=== PATIENT | female | born 1965 | race Caucasian/White ===

== ENCOUNTER 2024-12-19 12:45 | Outpatient (CLI) | payer OTHER, SELFPAY ==
--- NOTE | ~2024-12-19 | MMUS_ITS ---
EXAMINATION: MM diagnostic milton LT w umesh, US breast LT complete HISTORY: Follow-up left breast asymmetry TECHNIQUE: Additional 3-D tomosynthesis images of the left breast were performed and synthetic 2-D im ages were generated. CAD analysis was submitted and interpreted. High resolution complete left breast ultrasound was performed. COMPARISON: Comparison to multiple prior studies sequentially, with oldest reviewed study dated 10/04. BREAST PARENCHYMAL COMPOSITION: Not dense: There are scattered areas of fibroglandular density. FINDINGS: MAMMOGRAPHIC FINDINGS: There are no suspicious masses, calcifications or architectural distortion in the left breast to sugg est malignancy. ULTRASOUND: Complete US of all 4 quadrants of the left breast/s and retroareolar region was reviewed. Normal hete rogeneous echotexture without focal solid or cystic mass. IMPRESSION: 1. No evidence for malignancy in the left breast. 2. Routine yearly screening mammogram and regular clinical breast examination are recommended. BI-RADS Category 1: Negative Reviewed, dictated and finalized at location A. IMPRESSION: 1. No evidence for malignancy in the left breast. 2. Routine yearly screening mammogram and regular clinical breast examination a re recommended. BI-RADS Category 1: Negative
--- OUTSIDE RECORDS SUMMARY | 2024-12-19 14:17 | XMS_ITS | Encounter Summary ---
Author Organization [facility] Address [facility] [place] [address] Care Team Providers Care Ammunition Supervisor Name Role Phone Carolyn Espinoza Primary Care Provider [phone] Reason for Referral * Imaging (Routine) - New Request Specialty Diagnoses / Procedures Referred By Jeet t Referred To Contact RADIOLOGY Diagnoses Breast cancer screening by mammogram Procedures MG SCREENING W VINITA AILYN DIGI Carolyn Espinoza FNP [address] [place] [address] [place] [address] Phone: tel: fax: Referral ID Status Reason Start Date Expiration Date V isits Requested Visits Authorized [id number] New Request 12/16/2024 02/15/2026 1 1 Reason for Visit * Reason Onset Date Comments Mammography Order 12/14/2024 Encounter Details Date Type Department Care Team (Late st Contact Info) Description 12/14/2024 Telephone [facility] [address] [place] [address] Carolyn Espinoza FNP [address] [place] [address] [place] [address] Mammography Order Social History Tobacco Use Types Packs/Day Years Used Date Smoking Tobacco: Former Cigarettes Q uit: 06/22/2012 Passive Smoke Exposure: Never Smokeless Tobacco: Never Alcohol Use Standard Drinks/Week Comments Yes 0 (1 standard drink = 0.6 oz pur e alcohol) rarely PHQ-2 Answer Date Recorded Patient Health Questionnaire-2 Score 0 02/05/2024 Comments No Sex and Gender Information Value Date Recorded Sex Assigned at Not on file Legal Sex Female 7:53 AM CDT Gender Identity Not on file Sexual Orientation Not on file documented as of this encounter Progress Notes * Rebeca Lundberg LPN - 12/19/2024 1:06 PM CDT I called and confirmed fax. [phone]. We have faxed twice and it has failed. They asked I fax to [facility] . Refaxed to this number. * Preston Gimenez - 12/19/2024 12:50 PM CDT Re printed orders and sent to [facility] stated they did not receive orders. * Rebeca Lundberg LPN - 12/16/2024 3:25 PM CDT New mammogram order and last mammogram and US results faxed to number below and pt aware. * Preston Gimenez - 12/14/2024 12:14 PM CDT Pt calling needing order for mammogram sent to [facility] needing bilateral also needing last mammogram sent to them as well pt will be picking up new order please advise. Appt date documented in this encounter Plan of Treatment Scheduled Orders Name Type Priority Associated Diagnoses Orde r Schedule MG SCREENING W VINITA AILYN DIGI MAMMO Routine Breast cancer screening by mammogram Expected: 12/16/2024, Expires: 12/16/2025 documented as of this encounter Visit Diagnoses Diagnosis Breast cancer screening by mammogram- Primary documented in this encounter Care Teams Ammunition Supervisor Relationship Specialty Start Date End Date Carolyn Espinoza FNP [address] [place] [address] [place] [address] PCP - General 09/29/23 documented as of this encounter
--- OUTSIDE RECORDS SUMMARY | 2024-12-19 14:17 | XMS_ITS | Clinical Summary ---
Author Organization [facility] Address [address] [place] [address] Care Team Providers Care Management Technician Name Role Phone Carolyn Espinoza ANASTASIIA-INVESTIGATION CLERK Primary Care Provider [phone] Source Comments [facility] [employer],non-owned Affiliates and Associated Physician Practices is amultiple site organization consisting of ambulatory clinics and hospital sitesin [place], [place], [place] and [place]. This disclosure is being madepursuant to the Care Everywhere program and may not contain all information available regarding this patient. Last updated 18.[facility] [employer] Allergies Active Allergy Reactions Criticality Noted Date Comments Codeine Itching,Unknown 04/23/2012 Metformin Diarrhea 09/21/2018 Medications * Be aware that medications may not be up to date on this document. Alwaysverify current medications with the patient. Medication Sig Dispensed Refills Start Date End Date Status atorvastatin (Lipitor) 20 MG tablet Take 1 (one) tablet by mouth once daily 04/19/2024 Active lisinopril (Prinivil; Zestril) 20 MG tablet Take 1 (one) tablet by mouth once daily 04/19/2024 Active Mounjaro 2.5 MG/0.5ML injection Inject 2.5 (two and one-half) mg subcutaneously every 7 days 05/21/2024 Active ketoconazole (Nizoral) 2 % cream Apply to rash twice daily. 30 days supply. 60 g 3 06/08/2024 Active Active Problems No known active problems Social History Tobacco Use Types Packs/Day Years Used Date Smoking Tobacco: Never Assessed Sex and Gender Information Value Date Recorded Sex Assigned at Not on file Gender Identity Not on file Sexual Orientation Not on file Plan of Treatment Upcoming Encounters Date Type Department Care Team (Late st Contact Info) Description 06/07/2025 8:20 AM CDT Office Visit [facility] - Dermatology [address] [place] [phone] Elias Burch MD [facility] [facility] [address] [place] [phone] Health Maintenance Due Date Last Done Comments COLOGUARD (AGES 45-75) - COLON CA SCREENING 1964 COLON MONITORING 1964 COLONOSCOPY - COLON CA SCREENING 1964 CT COLONOGRAPHY - COLON CA SCREENING 1964 Colorectal Cancer Screening 1964 FIT - COLON CA SCREENING 1964 FLEX SIG - COLON CA SCREENING 1964 PAP SMEAR 1964 HIV SCREENING 1979 HEPATITIS C SCREENING 07/18/1982 DTAP/TDAP/TD VACCINES (1 - Tdap) 1983 PNEUMOCOCCAL VACCINE 50+ (1 of 1 - PCV) 2014 ZOSTER VACCINE (1 of 2) 2014 COVID-19 VACCINE (1 - season) 2024 INFLUENZA VACCINE (#1) 2024 07/07/2019 DEPRESSION SCREENING 09/21/2024 MAMMOGRAM 05/06/2026 05/06/2024, 04/21, 04/24/2022, Additional history exists Respiratory Syncytial Virus (RSV) Vaccine Pt: or over 60 yrs (1 - 1-dose 75+ series) 2039 HEPATITIS B VACCINE Aged Out No longe r eligible based on patient's age to complete this topic HIB VACCINE Aged Out No longer eligi ble based on patient's age to complete this topic HPV VACCINE Aged Out No longer eligi ble based on patient's age to complete this topic MENINGOCOCCAL (Group B) VACCINE SHARED DECISION-MAKING Aged Out No longer eligible based on patient's age to complete this topic MENINGOCOCCAL GROUPS A/C/Y/W VACCINE Aged Out No longer eligible based on patient's age to complete this topic PNEUMOCOCCAL VACCINE Aged Out No long er eligible based on patient's age to complete this topic Care Teams Management Technician Relationship Specialty Start Date End Date Carolyn Espinoza, COMMERCIAL CARPENTER-INVESTIGATION CLERK [address] [place] [address] [place] [address] PCP - General Nurse Practitioner Family 04/28/24
--- OUTSIDE RECORDS SUMMARY | 2024-12-19 14:17 | XMS_ITS | Clinical Summary ---
Author Organization [facility] Address [facility] [place] [address] Care Team Providers Care Gravel Inspector Name Role Phone Emilee Espinoza MALCOLM Primary Care Provider [phone] Allergies Active Allergy Reactions Criticality Noted Date Comments Codeine Itching,Unknown 04/23/2012 Metformin Diarrhea 09/21/2018 Medications atorvastatin (LIPITOR) 20 MG tabletIndications: Uncontrolled type 2 diabetes mellitus with hyperglycemia ([facility] HHS/HCC) Take 1 tablet (20 mg total) by mouth nightly at bedtime. 90 tablet 1 4 Active empagliflozin (JARDIANCE) 10 MG tabletIndications: Uncontrolled type 2 diabetes mellitus with hyperglycemia ([facility] HHS/HCC) Take 1 tablet (10 mg total) by mouth daily. 30 tablet 2 4 Active traMADol (ULTRAM) 50 MG tabletIndications: Acute Pain < 3 Day Supply Take 1 tablet (50 mg total) by mouth every 6 (six) hours as needed for Pain. Indications: Acute Pain < 3 Day Supply 10 tablet 4 Active diclofenac EC (VOLTAREN) 75 MG tabletIndications: Chronic left shoulder pain,Decreased range of motion of left shoulder TAKE 1 TABLET BY MOUTH TWICE A DAY 60 tablet 4 Active lisinopril (PRINIVIL) 20 MG tabletIndications: Uncontrolled type 2 diabetes mellitus with hyperglycemia ([facility] HHS/HCC),Essential hypertension TAKE 1 TABLET BY MOUTH EVERY DAY 90 tablet 1 5 Active Active Problems Problem Noted Date Diagnosed Date Type 2 diabetes mellitus wit h hyperglycemia, without long-term current use of insulin ([facility]) 10/05/2023 Other fatigue 10/15/2019 Overview (04/23/2022): Last Assessment & Plan: Probably multifactorial. Check labs and followup to re-evaluate Check labs. Fatty liver 07/13/2019 Overview (04/23/2022): Abdominal US 2018 Last Assessment & Plan: Check labs. Encouraged diet and exercise Morbid obesity 06/09/2012 Overview (04/23/2022): Last Assessment & Plan: Obesity is unchanged. Discussed the patient's BMI. The BMI is above average. BMI management plan is completed. BMI Follow-up includes: nutrition counseling, exercise counseling and education provided. Resolved Problems Problem Noted Date Diagnosed Date Resolved Date Controlled type 2 diabetes ari anderson with hyperglycemia, without long-term current use of insulin ([facility]) 12/21/2017 01/07/2024 Overview (04/23/2022): Last Assessment & Plan: Stressed importance of continued A1c control to minimize the nursing home effects of diabetes. Bring accuchecks to office when instructed to do so. Check A1c about every 3-6 months. Take medication as prescribed. Get annual eye exam. Encouraged XAVI/Statin if able to tolerate. Encouraged weight control and encouraged diabetic diet and exercise. Check labs. Encounters Date Type Department Care Team Description 12/14/[address] [place] [id number] Emilee Espinoza FNP Mammography Order 11/16/[address] [place] [address] Emilee Espinoza FNP Mammography Order from Last 3 Months Immunizations Name Administration Dates Next Due Influenza Adult (Generic) 07/07/2019 Family History Medical History Relation Comments Hyperlipidemia Brother Hypertension Brother Skin cancer Brother Lung Cancer Father Suicidality Father Hyperlipidemia Mother Hypertension Mother Kidney failure Mother Stroke Mother bladder cancer Mother Brain cancer Sister Breast Cancer Sister Depression Sister Hypertension Sister breast cancer Sister Relation Status Comments Brother Alive Father Mother Sister Alive Social History Tobacco Use Types Packs/Day Years Used Date Smoking Tobacco: Former Cigarettes Q uit: 06/22/2012 Passive Smoke Exposure: Never Smokeless Tobacco: Never Tobacco Cessation:Counseling Given: No Alcohol Use Standard Drinks/Week Comments Yes 0 (1 standard drink = 0.6 oz pur e alcohol) rarely PHQ-2 Answer Date Recorded Patient Health Questionnaire-2 Score 0 02/05/2024 Comments No Sex and Gender Information Value Date Recorded Sex Assigned at Not on file Legal Sex Female 7:53 AM CDT Gender Identity Not on file Sexual Orientation Not on file Last Filed Vital Signs Vital Sign Reading Time Taken Comments Blood Pressure 159/73 07/06/2024 8:41 AM CDT Pulse 63 07/06/2024 8:33 AM CDT Temperature 36.7 C (98.1 F) 07/06/2024 8:33 AM CDT Respiratory Rate 12 07/06/2024 8:33 AM CDT Oxygen Saturation 99% 07/06/2024 8:33 AM CDT Inhaled Oxygen Concentration - - Weight 101.2 kg (223 lb) 07/06/2024 8:33 AM CDT Height 158.8 cm (5' 2.5 ) 07/06/2024 8:33 AM CDT Body Mass Index 40.14 07/06/2024 8:33 AM CDT Plan of Treatment Health Maintenance Due Date Last Done Comments Cervical Cancer Screening Pap Smear (Age 30 to 64) Every 3 Years 1964 Colorectal Cancer Screening Colonoscopy (10 Years) 1964 Diabetes: Retinopathy Eye Exam 1982 DTaP, Tdap and Td Vaccines (1 - Tdap) 1983 Cervical Cancer Screening Pap with HPV Testing (Age 30 to 64) Every 5 Years 1994 Zoster Vaccines (1 of 2) 2014 Annual Physical 04/23/2023 04/23/2022 COVID-19 Vaccine ( - season) 2024 RSV Immunization or 60+ Years (1 - Risk 60-74 years 1-dose series) 2024 PHQ-2 (Physician [place]) 09/21/2024 02/05/2024 Hemoglobin A1C 10/20/2024 04/19/2024, 0401/2024, 10/02/2023, Additional history exists Lipid Panel 01/03/2025 01/04/2024, 10/02/2023 Kidney Health Evaluation 04/19/2025 04/19/2024 Cervical Cancer Screening with HPV 04/21/2025 Postponed from 1994 (Going to Outside Clinic) Mammogram Screening 06/09/2026 06/09/2024, 05/06/2024, 04/24/2022 Pneumococcal Vaccine: Pediatrics (0 to 5 Years) and At-Risk Patients (6 to 64 Years) (1 of 2 - PCV) 2030 Postponed from 1970 (Future Appointment) Hepatitis C 04/23/2052 Postponed from 1982 (Patient Refused) Meningococcal B Vaccine Aged Out No l onger eligible based on patient's age to complete this topic Meningococcal Vaccine Aged Out No tara mark eligible based on patient's age to complete this topic RSV Immunizations Under 20 Months Aged Out No longer eligible based on patient's age to complete this topic Procedures Procedure Name Priority Date/Time Associated Diagnosis Comments MG DIAG ADD VIEW W VINITA LT LUANN 06/09/2024 8:39 AM CDT Abnormal mammogram HEMOGLOBIN, GLYCOSYLATED Routine 04/19/2024 6:35 AM CDT Uncontrolled type 2 diabetes mellitus with hyperglycemia LIPID PANEL Routine 01/04/2024 9:00 AM CDT Uncontrolled type 2 diabetes mellitus with hyperglycemia from Last 3 Months or Most Recently Relevant to Health Maintenance Results * MG DIAG ADD VIEW W VINITA LT (06/09/2024 8:39 AM CDT) Anatomical Region Laterality Modality Left Computed Tomogra phy, Other, Computed Tomography 06/09/2024 9:13 AM CDT Impressions 06/09/2024 9:15 AM CDT =====IMPRESSION:===== No correlate for asymmetry is noted on screening exam on diagnostic mammogram or ultrasound. Close interval follow-up however is recommended. Assessment: ACR BI-RADS 3 - PROBABLY BENIGN FINDING(S) - SHORT INTERVAL FOLLOW- UP SUGGESTED Recommendation: 1Short interval follow-up in 6 months. Left COMMENTS: Patient was informed of these findings, including the need for short interval follow up; by me, in person, at time of present study. Notification was performed in the presence of Rickey, computer engineering technologist. Examination: Breast ultrasound Findings: See combined report above. Comments: Ordered By: EMILEE ESPINOZA Interpreted By: Edgardo Gaines MD, 06/09/2024 9:13 AM Narrative 06/09/2024 9:15 AM CDT [address] [place] [address] Examination: Left diagnostic mammogram with 3-D tomosynthesis and ultrasound. [id number] Exam Date/Time: 06/09/2024 8:52 AM Reason For Exam: Abnormal screening mammogram Comparison: 05/06/2024, 04/24/2022, 12/23/2017, 05/03/2012 Technique: Left digital diagnostic mammography with 3-D tomosynthesis and ultrasound was performed. This study was read with the assistance of a computer-aided detection system. TISSUE DENSITY: There are scattered areas of fibroglandular density. FINDINGS: Previous asymmetry seen in the left breast on screening mammogram effaces with spot compression. No correlate on ultrasound is seen. us Emilee Espinoza COFFEE ATTENDANT MAMMO Final Result * (ABNORMAL) HEMOGLOBIN, GLYCOSYLATED (04/19/2024 6:35 AM CDT) HGB A1C 8.3(H) <5.7 % 04/19/2024 5:53 PM CDT [facility] Comment: ADA GUIDELINES 2010 5.7 TO 6.4% INCREASED RISK OF DIABETES > OR = 6.5% CONSISTENT WITH DIABETES ESTIMATED AVG GLUCOSE 192 mg/dL 04/19/2024 5:53 PM CDT [facility] 04/19/2024 6:35 AM CDT Emilee Espinoza COFFEE ATTENDANT LABORATORY Final Result [facility] [address] [place] [address], * LIPID PANEL (01/04/2024 9:00 AM CDT) CHOLESTEROL 150 0 - 200 MG/DL 01/04/2024 10:24 AM CDT [facility] TRIGLYCERIDES 116 0 - 150 MG/DL 01/04/2024 10:24 AM CDT [facility] HDL 48 >40 MG/DL 01/04/2024 10:24 AM CDT [facility] LDL (CALCULATED) 79 <100 MG/DL 01/04/2024 10:24 AM CDT [facility] NON HDL CHOLESTEROL 102 0 - 130 MG/DL 01/04/2024 10:24 AM CDT [facility] Comment: NOTE: WHEN THE TRIGLYCERIDES ARE >200 mg/dL, NON HDL C IS A SECONDARY TARGET OF THERAPY, WITH A GOAL 30 mg/dL HIGHER THAN THE IDENTIFIED LDL C GOAL. CHOL/HDL RATIO 3.1 0.0 - 4.5 01/04/2024 10:24 AM CDT [facility] VLDL CALCULATION 23 5 - 55 MG/DL 01/04/2024 10:24 AM CDT [facility] LIPID INTERPRETATION 01/04/2024 10:24 AM CDT [facility] Comment: NIH CONCENSUS REPORT RECOMMENDATIONS: ADULT CHILD LOW RISK: CHOLESTEROL <200 <170 TRIGLYCERIDE <150 --- HDL >=60 --- LDL <100 <110 BORDERLINE: CHOLESTEROL 200-239 170-199 TRIGLYCERIDE 150-199 --- HDL 40-59 --- LDL 100-159 110-129 HIGH RISK: CHOLESTEROL >=240 >=200 TRIGLYCERIDE >=200 --- HDL <40 --- LDL >=160 >=130 01/04/2024 9:00 AM CDT Emilee [facility] Final Result [facility] [address] [place] [address], from Last 3 Months or Most Recently Relevant to Health Maintenance Insurance MEDICAID [facility] Care Teams Gravel Inspector Relationship Specialty Start Date End Date Emilee Espinoza FNP [address] [place] [address] [place] [address] PCP - General 09/29/23
--- OUTSIDE RECORDS SUMMARY | 2024-12-19 14:17 | XMS_ITS | Referral Summary ---
Author Organization [facility] [place] [address] Address [address] [place] [address] Care Team Providers Care Driver Education Instructor Name Role Phone Jacki Barnes Primary Care Provider [phone] Allergies Active Allergy Reactions Criticality Noted Date Comments Codeine Phosphate Unknown 12/29/2018 Medications No known medications Active Problems Problem Noted Date Diagnosed Date Paronychia of right little finger 11/21/2019 Assessment & Plan (11/21/2019 5:56 PM PIE BAKER): Augmentin 875 mg twice a day for the next week. Advised to soak in warm water and Epsom salts. Recommended removal of nail. Instructed to follow-up with PCP if symptoms don't improve, worsen, or new symptoms develop. Dysuria 10/25/2019 Assessment & Plan (10/25/2019 9:42 PM PIE BAKER): Pt presents with dysuria. Urine dip completed. Send urine culture. Antibiotic to pharmacy. Reviewed bladder care. Flu-like symptoms 10/15/2019 Assessment & Plan (10/15/2019 1:53 PM PIE BAKER): Flu screening was negative. Other fatigue 10/15/2019 Assessment & Plan (10/15/2019 1:56 PM PIE BAKER): Probably multifactorial. Check labs and followup to re-evaluate Check labs. Acute non-recurrent maxillary sinusitis 10/15/19 20 Overview (10/15/2019): Start antibiotic, antihistamine, Mucinex and Steroid nasal spray. Will add steroid due to persistent cough. Push fluids. Rest. Supportive care. If sxs worsen or don\'t improve, pt is to followup in the office. Diarrhea 08/23/2019 Assessment & Plan (08/23/2019 8:38 PM PIE BAKER): Appears to be a viral gastroenteritis that is being potentiated by diet-- Urine dip negative for Ketones. Continue with clear fluids. Avoid dairy/fatty foods. BRAT/[place] diet until stool is more firm then slowly add back in food with dairy and fat being the last to add in. If sxs persist more than 5-7 days will need to get stool cultures/further workup. Fatty liver 07/13/2019 Overview (07/13/2019): Abdominal US 2018 Assessment & Plan (10/15/2019 1:52 PM PIE BAKER): Check labs. Encouraged diet and exercise Need for immunization against influenza 07/08/20 Assessment & Plan (07/08/2019 7:45 PM CDT): Updated in office. RUQ pain 07/08/2019 Assessment & Plan (07/08/2019 7:44 PM CDT): Sxs most consistent with Gallbladder but must also consider pancreatitis or other etiology. Will check abdominal US. If negative may consider HIDA. Explained to patient. Pt plans to schedule immediately. Reviewed GB diet. Prefers [facility] if necessary Considered labs/lipase/amylase. Pt wants to wait, clinically appears to be gallbladder. Reivewed warning s/s and to call or go to ER if appears. BMI 40.0-44.9, adult 05/09/2019 Assessment & Plan (10/13/2019 9:39 AM PIE BAKER): Obesity is unchanged. Discussed the patient's BMI. The BMI is above average. BMI management plan is completed. BMI Follow-up includes: nutrition counseling, exercise counseling and education provided. Assessment & Plan (08/23/2019 8:30 PM PIE BAKER): Obesity is unchanged. Discussed the patient's BMI. The BMI is above average. BMI management plan is completed. BMI Follow-up includes: nutrition counseling, exercise counseling and education provided. Assessment & Plan (07/08/2019 7:43 PM CDT): Obesity is unchanged. Discussed the patient's BMI. The BMI is above average. BMI management plan is completed. BMI Follow-up includes: nutrition counseling, exercise counseling and education provided. Assessment & Plan (05/09/2019 11:07 AM CDT): Obesity is unchanged. Discussed the patient's BMI. The BMI is above average. BMI management plan is completed. BMI Follow-up includes: nutrition counseling, exercise counseling and education provided. Morbid obesity 05/09/2019 Assessment & Plan (10/13/2019 9:40 AM PIE BAKER): Obesity is unchanged. Discussed the patient's BMI. The BMI is above average. BMI management plan is completed. BMI Follow-up includes: nutrition counseling, exercise counseling and education provided. Assessment & Plan (08/23/2019 8:30 PM PIE BAKER): Obesity is unchanged. Discussed the patient's BMI. The BMI is above average. BMI management plan is completed. BMI Follow-up includes: nutrition counseling, exercise counseling and education provided. Assessment & Plan (07/08/2019 7:44 PM CDT): Obesity is unchanged. Discussed the patient's BMI. The BMI is above average. BMI management plan is completed. BMI Follow-up includes: nutrition counseling, exercise counseling and education provided. Assessment & Plan (05/09/2019 11:07 AM CDT): Obesity is unchanged. Discussed the patient's BMI. The BMI is above average. BMI management plan is completed. BMI Follow-up includes: nutrition counseling, exercise counseling and education provided. Annual physical exam 05/09/2019 Assessment & Plan (05/09/2019 1:16 PM CDT): Encouraged healthy lifestyle, good nutrition and exercise. Encouraged Calcium and Vitamin D and weight bearing exercise for bone health. Reviewed immunizations Reviewed age appropirate screenings. Soft tissue mass 05/09/2019 Assessment & Plan (05/09/2019 1:17 PM CDT): This is a significant, separately identifiable problem that was evaluated and managed on the same day as the wellness exam Will check a ultrasound of the soft tissue of the left side of the back just below the last rib. It is not tender but is definitely an oblong mass that is separate from the rest of the tissue in the area. Follow up pending these results. Order given to patient for her to set at her convenience Breast cancer screening 05/09/2019 Assessment & Plan (05/09/2019 1:16 PM CDT): Mammogram order provided Mass 05/09/2019 Assessment & Plan (05/09/2019 1:17 PM CDT): This is a significant, separately identifiable problem that was evaluated and managed on the same day as the wellness exam Mass on forehead. Suspect this is a cyst but it is very firm. Will go ahead refer to the research home economist for further evaluation and probable removal. She would also like a full skin exam so it would be a perfect time for this to be done too. Controlled type 2 diabetes ari anderson with hyperglycemia, without long-term current use of insulin 05/09/2019 Assessment & Plan (10/15/2019 1:52 PM PIE BAKER): Stressed importance of continued A1c control to minimize the residential effects of diabetes. Bring accuchecks to office when instructed to do so. Check A1c about every 3-6 months. Take medication as prescribed. Get annual eye exam. Encouraged XAVI/Statin if able to tolerate. Encouraged weight control and encouraged diabetic diet and exercise. Check labs. Assessment & Plan (07/08/2019 7:44 PM CDT): Stressed importance of continued A1c control to minimize the terminal operations supervisor effects of diabetes. Bring accuchecks to office when instructed to do so. Check A1c about every 3-6 months. Take medication as prescribed. Get annual eye exam. Encouraged XAVI/Statin if able to tolerate. Encouraged weight control and encouraged diabetic diet and exercise. Continue with the Yuan. Monitor closely Assessment & Plan (05/09/2019 1:17 PM CDT): This is a significant, separately identifiable problem that was evaluated and managed on the same day as the wellness exam Stressed importance of continued A1c control to minimize the residential effects of diabetes. Bring accuchecks to office when instructed to do so. Check A1c about every 3-6 months. Take medication as prescribed. Get annual eye exam. Encouraged XAVI/Statin if able to tolerate. Encouraged weight control and encouraged diabetic diet and exercise. A1c is very well controlled with the Yuan. Her weight loss has not been as successful but she admits she is still eating a lot of carbs and not really watching her weight at all. She does recognize that she gets full quicker and does push food away but knows she needs to make different choices with her meals. She needs to get labs done to stop look at liver and kidney function since she has been on the to the [facility] so will provide the screens for this to be done prior to her next visit. Immunizations Immunization Administration Dates Next Due Influenza, Quadrivalent, Spl it, Preservative Free, Intramuscular 07/07/2019 Social History Tobacco Use Types Packs/Day Years Used Date Smoking Tobacco: Former Smokeless Tobacco: Never Alcohol Use Standard Drinks/Week Comments Yes 0 (1 standard drink = 0.6 oz pur e alcohol) PHQ-2 Answer Date Recorded PHQ-2 Score 0 05/11/2019 Personal Safety Answer Date Recorded Getting School Help Needed Not on file 12/03 Comments No Sex and Gender Information Value Date Recorded Sex Assigned at Not on file Legal Sex Female 8:23 AM PIE BAKER Gender Identity Not on file Sexual Orientation Not on file 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 Not on prieto e Last Filed Vital Signs Vital Sign Reading Time Taken Comments Blood Pressure 118/80 11/21/2019 5:24 PM PIE BAKER Pulse 65 11/21/2019 5:24 PM PIE BAKER Temperature 36.7 C (98 F) 11/21/2019 5:24 PM PIE BAKER Respiratory Rate 18 11/21/2019 5:24 PM PIE BAKER Oxygen Saturation 97% 11/21/2019 5:24 PM PIE BAKER Inhaled Oxygen Concentration - - Weight 112.9 kg (249 lb) 11/21/2019 5:24 PM PIE BAKER Height 162.6 cm (5' 4 ) 11/21/2019 5:24 PM PIE BAKER Body Mass Index 42.74 11/21/2019 5:24 PM PIE BAKER Plan of Treatment Not on file Insurance [employer] [place] Care Teams Driver Education Instructor Relationship Specialty Start Date End Date Jacki Barnes PA [address] [facility] [address] [place] [address] PCP - General Internal Medicine 05/09/19
--- OUTSIDE RECORDS SUMMARY | 2024-12-19 14:17 | XMS_ITS | Encounter Summary ---
Author Organization [facility] Address [facility] [place] [address] Care Team Providers Care Business Management Associate Name Role Phone Carolyn Espinoza Primary Care Provider [phone] Encounter Details Date Type Department Care Team (Late st Contact Info) Description 10/02/2023 QFPayt Message Enc [facility] [address] [place] [phone] Carolyn Espinoza FNP [address] [place] [address] Diabectic Meds Social History Tobacco Use Types Packs/Day Years Used Date Smoking Tobacco: Former Cigarettes Q uit: 06/22/2012 Smokeless Tobacco: Never Alcohol Use Standard Drinks/Week Comments Yes 0 (1 standard drink = 0.6 oz pur e alcohol) rarely Comments No Sex and Gender Information Value Date Recorded Sex Assigned at Not on file Legal Sex Female 7:53 AM CDT Gender Identity Not on file Sexual Orientation Not on file documented as of this encounter Plan of Treatment Not on file documented as of this encounter Visit Diagnoses Not on filedocumented in this encounter Care Teams Business Management Associate Relationship Specialty Start Date End Date Carolyn Espinoza FNP [address] [place], [place] [phone] PCP - General 09/29/23 documented as of this encounter
--- OUTSIDE RECORDS SUMMARY | 2024-12-19 14:17 | XMS_ITS | Encounter Summary ---
Author Organization [facility] Address [facility] [place] [address] Care Team Providers Care Hosiery Pairer Name Role Phone Carolyn Espinoza Primary Care Provider [phone] Encounter Details Date Type Department Care Team (Late st Contact Info) Description 06/14/2024 Aratana Therapeuticst Message Enc [facility] [address] [place] [phone] Carolyn Espinoza FNP [address] [place] [address] Sophia Social History Tobacco Use Types Packs/Day Years [...] on filedocumented in this encounter Care Teams Hosiery Pairer Relationship Specialty Start Date End Date Carolyn Espinoza FNP [address] [place] [phone] PCP - General 09/29/23 documented as of this encounter
--- OUTSIDE RECORDS SUMMARY | 2024-12-19 14:17 | XMS_ITS | Clinical Summary ---
Author Organization [facility] [place] [address] Address [address] [place] [address] Care Team Providers Care Accounts Receivable Administrator Name Role Phone Jacki Barnes Primary Care Provider [phone] Allergies Active Allergy Reactions Criticality Noted Date Comments Codeine Phosphate Unknown 12/29/2018 Medications No known medications Active Problems Problem Noted Date Diagnosed Date Paronychia of right little finger 11/21/2019 Assessment & Plan (11/21/2019 5:56 PM CLIENT PORTFOLIO MANAGER): Augmentin 875 mg twice a day for the next week. Advised to soak in warm water and Epsom salts. Recommended removal of nail. Instructed to follow-up with PCP if symptoms don't improve, worsen, or new symptoms develop. Dysuria 10/25/2019 Assessment & Plan (10/25/2019 9:42 PM CLIENT PORTFOLIO MANAGER): Pt presents with dysuria. Urine dip completed. Send urine culture. Antibiotic to pharmacy. Reviewed bladder care. Flu-like symptoms 10/15/2019 Assessment & Plan (10/15/2019 1:53 PM CLIENT PORTFOLIO MANAGER): Flu screening was negative. Other fatigue 10/15/2019 Assessment & Plan (10/15/2019 1:56 PM CLIENT PORTFOLIO MANAGER): Probably multifactorial. Check labs and followup to re-evaluate Check labs. Acute non-recurrent maxillary sinusitis 10/15/19 20 Overview (10/15/2019): Start antibiotic, antihistamine, Mucinex and Steroid nasal spray. Will add steroid due to persistent cough. Push fluids. Rest. Supportive care. If sxs worsen or don\'t improve, pt is to followup in the office. Diarrhea 08/23/2019 Assessment & Plan (08/23/2019 8:38 PM CLIENT PORTFOLIO MANAGER): Appears to be a viral gastroenteritis that is being potentiated by diet-- Urine dip negative for Ketones. Continue with clear fluids. Avoid dairy/fatty foods. BRAT/[place] diet until stool is more firm then slowly add back in food with dairy and fat being the last to add in. If sxs persist more than 5-7 days will need to get stool cultures/further workup. Fatty liver 07/13/2019 Overview (07/13/2019): Abdominal US 2018 Assessment & Plan (10/15/2019 1:52 PM CLIENT PORTFOLIO MANAGER): Check labs. Encouraged diet and exercise Need [...] 05/09/2019 Assessment & Plan (10/13/2019 9:39 AM CLIENT PORTFOLIO MANAGER): Obesity is unchanged. Discussed the patient's BMI. The BMI is above average. BMI management plan is completed. BMI Follow-up includes: nutrition counseling, exercise counseling and education provided. Assessment & Plan (08/23/2019 8:30 PM CLIENT PORTFOLIO MANAGER): Obesity is unchanged. Discussed the patient's BMI. [...] 05/09/2019 Assessment & Plan (10/13/2019 9:40 AM CLIENT PORTFOLIO MANAGER): Obesity is unchanged. Discussed the patient's BMI. The BMI is above average. BMI management plan is completed. BMI Follow-up includes: nutrition counseling, exercise counseling and education provided. Assessment & Plan (08/23/2019 8:30 PM CLIENT PORTFOLIO MANAGER): Obesity is unchanged. Discussed the patient's BMI. [...] firm. Will go ahead refer to the supervisor receiving and processing for further evaluation and probable removal. She would also like a full skin exam so it would be a perfect time for this to be done too. Controlled type 2 diabetes ari anderson with hyperglycemia, without long-term current use of insulin 05/09/2019 Assessment & Plan (10/15/2019 1:52 PM CLIENT PORTFOLIO MANAGER): Stressed importance of continued A1c control to minimize the jail effects of diabetes. Bring accuchecks to office when instructed to do so. Check A1c about every 3-6 months. Take medication as prescribed. Get annual eye exam. Encouraged XAVI/Statin if able to tolerate. Encouraged weight control and encouraged diabetic diet and exercise. Check labs. Assessment & Plan (07/08/2019 7:44 PM CDT): Stressed importance of continued A1c control to minimize the moth exterminator effects of diabetes. Bring accuchecks to office when instructed to do so. Check A1c about every 3-6 months. Take medication as prescribed. Get annual eye exam. Encouraged XAVI/Statin if able to tolerate. Encouraged weight control and encouraged diabetic diet and exercise. Continue with the [place]. Monitor closely Assessment & Plan (05/09/2019 1:17 PM CDT): This is a significant, separately identifiable problem that was evaluated and managed on the same day as the wellness exam Stressed importance of continued A1c control to minimize the jail effects of diabetes. Bring accuchecks to office when instructed to do so. Check A1c about every 3-6 months. Take medication as prescribed. Get annual eye exam. Encouraged XAVI/Statin if able to tolerate. Encouraged weight control and encouraged diabetic diet and exercise. A1c is very well controlled with the [place]. Her weight loss has not been as [...] she has been on the to the [facility] so will provide the screens for this to be done prior to her next visit. Immunizations Immunization Administration Dates Next Due Influenza, Quadrivalent, Spl it, Preservative Free, Intramuscular 07/07/2019 Surgical History Surgery Date Site/Laterality Comments TUBAL LIGATION CARPAL TUNNEL RELEASE 10/22/2003 - 11/19/2003 Family History Medical History Relation Name Comments Prostate cancer Father Anemia Mother Arthritis Mother Asthma Mother COPD Mother Diabetes Mother Heart disease Mother Hypertension Mother Osteoporosis Mother Stroke Mother Thyroid disease Mother Relation Name Status Comments Father Mother Alive Social History Tobacco Use Types Packs/Day [...] on file Legal Sex Female 8:23 AM CLIENT PORTFOLIO MANAGER Gender Identity Not on file Sexual Orientation Not on file 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 file Not on prieto e Obstetrics History Last Filed Vital Signs Vital Sign Reading Time Taken Comments Blood Pressure 118/80 11/21/2019 5:24 PM CLIENT PORTFOLIO MANAGER Pulse 65 11/21/2019 5:24 PM CLIENT PORTFOLIO MANAGER Temperature 36.7 C (98 F) 11/21/2019 5:24 PM CLIENT PORTFOLIO MANAGER Respiratory Rate 18 11/21/2019 5:24 PM CLIENT PORTFOLIO MANAGER Oxygen Saturation 97% 11/21/2019 5:24 PM CLIENT PORTFOLIO MANAGER Inhaled Oxygen Concentration - - Weight 112.9 kg (249 lb) 11/21/2019 5:24 PM CLIENT PORTFOLIO MANAGER Height 162.6 cm (5' 4 ) 11/21/2019 5:24 PM CLIENT PORTFOLIO MANAGER Body Mass Index 42.74 11/21/2019 5:24 PM CLIENT PORTFOLIO MANAGER Plan of Treatment Not on file Insurance [employer] [facility] Care Teams Accounts Receivable Administrator Relationship Specialty Start Date End Date Jacki Barnes PA [address] [address] PCP - General Internal Medicine 05/09/19
== END 2024-12-19 12:46 | disposition home or self-care (01) ==
PROVIDERS: PCP Nurse Practitioner Family; Visit Provider Nurse Practitioner Family
DX: R92.8 Other abnormal and inconclusive findings on diagnostic imaging of breast (principal)
CPT/HCPCS: 76641; 77061; 77065; G0279